=== PATIENT | female | born 1980 | race African-American/Black ===

== ENCOUNTER 2016-07-12 10:06 | Emergency (ER) | payer OTHER ==
[~2016-07-12] VITALS: Ht 157.5 cm; Wt 120.3 kg
[~2016-07-12 10:06] MED LIST: AZIT250T PO; OMEP20TA62 PO
[2016-07-12] MEDS ORDERED: METOPROLOL 1 MG/ML, 5ML IVPush ONE (11:14)
[2016-07-12] MEDS ORDERED: METO50TA82 PO (11:24)
[2016-07-12] MEDS ORDERED: HYDROCHLOROTHIAZIDE 25 MG TABLET PO ONE (11:30)
[2016-07-12 12:10] LABS: ASPARTATE AMINO TRANSFERASE 14 U/L (15-37); BLOOD UREA NITROGEN 11 mg/dL (7-18)
[2016-07-12 12:18] LABS: IS PT STATUS REG ER OR PRE ER? YES
[2016-07-12] MEDS ORDERED: METOCLOPRAMIDE 5 MG/ML, 2ML IVPush ONE (12:30)
[2016-07-12 12:45] VITALS: BP 136/81
[2016-07-13] MEDS ORDERED: OMEPRAZOLE 20 MG CAPSULE.DR PO SCH (07:30)
== END 2016-07-12 12:47 | disposition home or self-care (01) ==
LOC: ED 11:10
DX: I10 Essential (primary) hypertension (principal); Z88.0 Allergy status to penicillin; Z88.1 Allergy status to other antibiotic agents; Z91.041 Radiographic dye allergy status; Z91.013 Allergy to seafood
CPT/HCPCS: 36415; 80053; 84484; 85025; 93005

== ENCOUNTER → 2016-08-12 23:45 | Emergency (ER) | payer SELFPAY ==
[~2016-08-12 23:45] MED LIST changes: +DIPHENHYDRAMINE 50 MG CAPSULE ONE; +KETOROLAC 30 MG/1 ML ONE; +METO50TA82 PO; +METOCLOPRAMIDE 5 MG/ML, 2ML ONE
== END ==
LOC: ED 23:45
DX: R51 Headache (principal); R20.8 Other disturbances of skin sensation; I10 Essential (primary) hypertension
CPT/HCPCS: 99281

== ENCOUNTER 2016-09-07 22:18 | Emergency (ER) | payer OTHER ==
[~2016-09-07] VITALS: Ht 157.5 cm; Wt 120.2 kg
[~2016-09-07 22:18] MED LIST changes: -DIPHENHYDRAMINE 50 MG CAPSULE ONE; -KETOROLAC 30 MG/1 ML ONE; -METOCLOPRAMIDE 5 MG/ML, 2ML ONE
[2016-09-07 22:28] VITALS: BP 189/124
[2016-09-08] MEDS ORDERED: IBUPROFEN 200 MG TABLET PO ONE
[2016-09-08] MEDS ORDERED: IBUPROFEN 200 MG TABLET ONE (00:07)
== END 2016-09-08 01:40 | disposition home or self-care (01) ==
LOC: ED 23:59
DX: M77.52 Other enthesopathy of left foot and ankle (principal); M79.672 Pain in left foot; I10 Essential (primary) hypertension
CPT/HCPCS: 36415; 84550; 99285

== ENCOUNTER 2016-09-18 20:55 | Emergency (ER) | payer OTHER ==
[~2016-09-18] VITALS: Ht 157.5 cm; Wt 122.3 kg
[2016-09-18] MEDS ORDERED: DIPHENHYDRAMINE 50 MG/ML, 1ML ONE (22:29)
[2016-09-18] MEDS ORDERED: PROCHLORPERAZINE 5 MG/ML, 2ML ONE (22:29)
[2016-09-18] MEDS ORDERED: KETOROLAC 30 MG/1 ML ONE (22:29)
[2016-09-18] MEDS ORDERED: SODIUM CHLORIDE 0.9% 1,000ML IVBOLUS ONE (22:30)
[2016-09-18] MEDS ORDERED: DIPHENHYDRAMINE 50 MG/ML, 1ML IVPush ONE (22:30)
[2016-09-18] MEDS ORDERED: KETOROLAC 30 MG/1 ML IVPush ONE (22:30)
[2016-09-18] MEDS ORDERED: PROCHLORPERAZINE 5 MG/ML, 2ML IVPush ONE (22:30)
[2016-09-18 22:49] LABS: BLOOD UREA NITROGEN 11 mg/dL (7-18)
[2016-09-18 23:28] VITALS: BP 144/99
== END 2016-09-18 23:30 | disposition home or self-care (01) ==
LOC: ED 21:39
DX: G43.009 Migraine without aura, not intractable, without status migrainosus (principal); I10 Essential (primary) hypertension
CPT/HCPCS: 36415; 80048; 82040; 84703; 85025; 93005; 96361; 96374; 96375; 99285; J0780; J1200; J1885; J7030

== ENCOUNTER 2017-02-13 18:12 | Emergency (ER) | payer OTHER ==
[~2017-02-13] VITALS: Ht 157.5 cm; Wt 122.6 kg
[2017-02-13] MEDS ORDERED: SODIUM CHLORIDE FLUSH 10ML SYR IVF ONE (19:00)
[2017-02-13] MEDS ORDERED: ONDANSETRON 2MG/ML, 2ML IVPush ONE (19:00)
[2017-02-13] MEDS ORDERED: SODIUM CHLORIDE 0.9% 1,000ML IVBOLUS ONE (19:00)
[2017-02-13 19:12] LABS: ASPARTATE AMINO TRANSFERASE 24 U/L (15-37); BLOOD UREA NITROGEN 16 mg/dL (7-18)
[2017-02-13 19:32] LABS: HEMATOCRIT 47.5 % (34.6-47.8); WHITE BLOOD COUNT 12.6 x10^3/uL (3.4-10)
[2017-02-13] MEDS ORDERED: FAMOTIDINE 20 MG/2 ML IVPush ONE (20:00)
[2017-02-13 20:19] VITALS: BP 132/76
== END 2017-02-13 20:44 | disposition home or self-care (01) ==
LOC: ED 20:05
DX: R10.11 Right upper quadrant pain (principal); G43.909 Migraine, unspecified, not intractable, without status migrainosus; I10 Essential (primary) hypertension
CPT/HCPCS: 36415; 76700; 80053; 81003; 83690; 84703; 85025; 96374; 96375; 99285; J2405; J7030; S0028